=== PATIENT | male | born 1985 | race American Indian/Alaskan Native ===

== ENCOUNTER 2017-05-15 13:18 | Emergency (ER) | payer BC, MEDICAID ==
[2017-05-15] MEDS ORDERED: Acetaminophen/HYDROcodone 325-5 MG Tab PO ONE (13:36)
[2017-05-15] MEDS ORDERED: Ibuprofen 600 MG Tab PO ONE (13:37)
--- NOTE | 2017-05-15 13:53 | EDM.PDOC ---
ED HPI GENERAL MEDICAL PROBLEM - General Chief Complaint: Upper Extremity Injury/Pain Stated Complaint: RIGHT SHOULDER PAIN Time Seen by Provider: 05/15/17 13:23 Source of Information: Reports: Patient, Family History Limitations: Reports: No Limitations - History of Present Illness INITIAL COMMENTS - FREE TEXT/NARRATIVE: 32 years old male came to the ed after he over extended his right shoulder after playing volley ball. The patient heard a "pop" and has pain at his r ant shoulder since, especially with movement. No direct trauma. No N/V/D or any other acute medical issues at this time. Onset: Today Onset Date: 05/15/17 Onset Time: 12:00 Duration: Hour(s):, Intermittent Location: Reports: Upper Extremity, Right (r ant shoulder) Quality: Reports: Ache, Burning, Dull Severity: Moderate Improves with: Reports: Cold Therapy, Immobilization, Medication Worsens with: Reports: Movement Context: Reports: Exercise Associated Symptoms: Reports: No Other Symptoms - Related Data Allergies Allergy/AdvReac Type Severity Reaction Status Date / Time No Known Allergies Allergy Verified 05/15/17 13:23 Home Meds: Home Meds Acetaminophen/HYDROcodone [[place]aco 325-5 MG] 1 tab PO Q4H PRN #6 tab 05/15/17 [Rx] Past Medical History - Past Health History Medical/Surgical History: Denies Medical/Surgical History Cardiovascular History: Reports: Hypertension Neurological History: Reports: Migraines Other Neuro History: After he was diagnosed with HTN and started on medication he was no longer having headaches - Past Surgical History Cardiovascular Surgical History: Reports: None Social & Family History - Family History Family Medical History: Noncontributory - Tobacco Use Smoking Status *Q: Current Every Day Smoker Years of Tobacco use: 24 Packs/Tins Daily: 1 Used Tobacco, but Quit: No Second Hand Smoke Exposure: Yes - Caffeine Use Caffeine Use: Reports: None - Recreational Drug Use Recreational Drug Use: No Drug Use in Last 12 Months: No Review of Systems - Review of Systems Review Of Systems: See Below Constitutional: Reports: No Symptoms Eyes: Reports: No Symptoms Ears: Reports: No Symptoms Nose: Reports: No Symptoms Mouth/Throat: Reports: No Symptoms Respiratory: Reports: No Symptoms Cardiovascular: Reports: No Symptoms GI/Abdominal: Reports: No Symptoms Genitourinary: Reports: No Symptoms Musculoskeletal: Reports: Shoulder Pain Skin: Reports: No Symptoms Neurological: Reports: Other (tingling r fingers off/on) Psychiatric: Reports: No Symptoms ED EXAM, GENERAL - Physical Exam Exam: See Below Exam Limited By: No Limitations General Appearance: Alert, WD/WN, Mild Distress, Obese Eye Exam: Bilateral Eye: Normal Inspection Ears: Normal External Exam Ear Exam: Bilateral Ear: Auricle Normal Nose: Normal Inspection Throat/Mouth: Normal Inspection, Normal Lips Head: Atraumatic, Normocephalic Neck: Normal Inspection, Supple, Non-Tender, Full Range of Motion Respiratory/Chest: No Respiratory Distress, Lungs Clear, Normal Breath Sounds Cardiovascular: Normal Peripheral Pulses, Regular Rate, Rhythm, No Edema Peripheral Pulses: 1+: Femoral (L), Femoral (R) GI/Abdominal: Normal Bowel Sounds, Soft, Non-Tender (Male) Exam: Deferred Rectal (Males) Exam: Deferred Back Exam: Normal Inspection, Full Range of Motion Extremities: Limited Range of Motion (r shoulder due to pain) Neurological: Alert, Oriented, CN II-XII Intact, Normal Cognition, Normal Reflexes Psychiatric: Normal Affect, Normal Mood Skin Exam: Warm, Dry, Intact, Normal Color, No Rash Lymphatic: No Adenopathy Course - Vital Signs Text/Narrative:: 32 years old male came to the ed after he over extended his right shoulder after playing volley ball. The patient heard a "pop" and has pain at his r ant shoulder since, especially with movement. No direct trauma. No N/V/D or any other acute medical issues at this time. PE: pain r ant shoulder to palpation. Imaging: r shoulder neg Impression: R shoulder sprain. Tx: Ice, Motrin, Vicodin. Reexam: Improved Plan: D/C with instructions. Last Recorded V/S: Last Vital Signs Temp 36.8 C 05/15/17 14:30 Pulse 81 05/15/17 14:30 Resp 18 05/15/17 14:30 BP 135/78 05/15/17 14:30 Pulse Ox 100 05/15/17 14:30 - Orders/Labs/Meds Orders: Active Orders 24 hr Category Date Time Status Cooling Warming Measures [RC] ASDIRECTED Care 05/15/17 13:38 Active Ice Bag [Ice Therapy] [OM.PC] Routine Oth 05/15/17 13:38 Ordered Meds: Medications Discontinued Medications Generic Name Dose Route Start Last Admin Trade Name Freq PRN Reason Stop Dose Admin Hydrocodone Bitart/Acetaminophen 1 tab 05/15/17 13:36 05/15/17 14:07 [place] 325-5 Mg PO 05/15/17 13:37 1 tab ONETIME ONE Administration Ibuprofen 600 mg 05/15/17 13:37 05/15/17 14:06 Motrin PO 05/15/17 13:38 600 mg ONETIME ONE Administration Departure - Departure Time of Disposition: 14:19 Disposition: Home, Self-Care 01 Condition: Good Clinical Impression: Shoulder sprain Qualifiers: Encounter type: initial encounter Shoulder sprain type: coracohumeral ligament Laterality: right Qualified Code(s): S43.411A - Sprain of right coracohumeral ( ligament), initial encounter - Discharge Information Prescriptions: Acetaminophen/HYDROcodone [[place]aco 325-5 MG] 1 tab PO Q4H PRN #6 tab PRN Reason: severe pain only Instructions: Shoulder Sprain Referrals: PCP,None [Primary Care Provider] - Forms: ED Department Discharge Additional Instructions: Ice, rest and elevation, motrin for moderate pain, Waco for severe pain. Please wear armsling. Please follow up, please come back to the ed if your symptoms get worse acutely. - My Orders Last 24 Hours: My Active Orders 05/15/17 13:38 Cooling Warming Measures [RC] ASDIRECTED Ice Bag [Ice Therapy] [OM.PC] Routine - Assessment/Plan Last 24 Hours: My Active Orders 05/15/17 13:38 Cooling Warming Measures [RC] ASDIRECTED Ice Bag [Ice Therapy] [OM.PC] Routine
[2017-05-15 14:30] VITALS: BP 135/78
--- NOTE | 2017-05-15 16:25 | CR ---
INDICATION: Right shoulder pain after catching a ball - playing basketball and heard a "pop" as he shot the ball 2 days ago. RIGHT SHOULDER: Three views of the right shoulder were obtained. The axillary view was not obtained due to discomfort of the patient. A fracture, dislocation , or other significant bone or joint abnormality was not identified. SARAY
== END 2017-05-15 14:30 | disposition home or self-care (01) ==
LOC: FB.ED 13:18
DX: S43.411A Sprain of right coracohumeral (ligament), initial encounter (principal); I10 Essential (primary) hypertension; G43.909 Migraine, unspecified, not intractable, without status migrainosus; F17.210 Nicotine dependence, cigarettes, uncomplicated; X50.1XXA Overexertion from prolonged static or awkward postures, initial encounter; Y93.68 Activity, volleyball (beach) (court)
CPT/HCPCS: 73030; 99284; A9270; 99283

== ENCOUNTER 2017-07-28 20:44 | Emergency (ER) | payer MEDICAID ==
[2017-07-28] MEDS ORDERED: hydrOXYzine HCl 50 MG/ML SDV IM ONE (21:09)
[2017-07-28] MEDS ORDERED: Morphine 10 MG/ML Syringe IM ONE (21:09)
[2017-07-28] MEDS ORDERED: Ibuprofen 800 MG Tab PO ONE (21:42)
[2017-07-28] MEDS ORDERED: Ibuprofen 800 MG Tab ONE (21:46)
[2017-07-29 01:19] VITALS: BP 112/66
--- NOTE | 2017-07-29 02:07 | ER ---
DATE SEEN: 07/28/2017 REASON FOR VISIT: Migraine headache. HISTORY OF PRESENT ILLNESS: This is a 32-year-old with headache that started this morning insidiously, getting worse progressively consistent and characteristic of his usual headaches associated with nausea and photosensitivity. It is frontal and bitemporal. REVIEW OF SYSTEMS: Negative for any fever, chills, cough or cold symptoms. ALLERGIES: No known allergies. PHYSICAL EXAMINATION: GENERAL: He is in a darkened room. VITAL SIGNS: He has normal vital signs. HEENT: Head is normal size. Scalp, no signs of trauma. Pupils are equal react to light. NECK: Supple. NEUROLOGICAL: Mental status alert. IMPRESSION: Migraine headache exacerbation. PLAN: Morphine and Vistaril IM. Recommend follow up in the office tomorrow or return with any worsening symptoms. TIME SEEN: 2100 hours. /[id number] KENY/KEVYN
== END 2017-07-28 21:45 | disposition home or self-care (01) ==
LOC: FB.ED 20:44
DX: G43.909 Migraine, unspecified, not intractable, without status migrainosus (principal)
CPT/HCPCS: 82962; 96372; 99283; A9270; J2270; J3410

== ENCOUNTER 2018-05-17 12:38 | Emergency (ER) | payer MEDICAID ==
--- NOTE | 2018-05-17 13:49 | EDM.PDOC ---
ED HPI GENERAL MEDICAL PROBLEM - General Chief Complaint: Lower Extremity Injury/Pain Stated Complaint: RIGHT HIP PAIN Time Seen by Provider: 05/17/18 12:38 Source of Information: Reports: Patient, Family History Limitations: Reports: No Limitations - History of Present Illness INITIAL COMMENTS - FREE TEXT/NARRATIVE: 33 y.o.w.m came to the ed after he hit his right lat hip while getting off a truck. Pt has pain at his lat aspect of his right hip with movement. No other acute medical issues. BP 134/90 RR 18 Pulse ox 100% on RA pulse 94 Temp 98 Onset Date: 05/16/18 Onset Time: 20:00 Duration: Day(s):, Intermittent Location: Reports: Lower Extremity, Right Quality: Reports: Ache, Dull, Pressure Severity: Moderate Improves with: Reports: Rest Worsens with: Reports: Movement Context: Reports: Trauma Associated Symptoms: Reports: No Other Symptoms - Related Data Allergies Allergy/AdvReac Type Severity Reaction Status Date / Time No Known Allergies Allergy Verified 05/17/18 12:50 Home Meds: Home Meds Acetaminophen/oxyCODONE [Percocet 325-5 MG] 1 each PO Q6HR PRN #6 tab 05/17/18 [ Rx] Past Medical History - Past Health History Medical/Surgical History: Denies Medical/Surgical History Cardiovascular History: Reports: Hypertension Neurological History: Reports: Migraines Other Neuro History: After he was diagnosed with HTN and started on medication he was no longer having headaches Endocrine/Metabolic History: Reports: Diabetes, Type II - Past Surgical History Cardiovascular Surgical History: Reports: None Social & Family History - Family History Family Medical History: Noncontributory - Caffeine Use Caffeine Use: Reports: None Review of Systems - Review of Systems Review Of Systems: See Below Constitutional: Reports: No Symptoms Eyes: Reports: No Symptoms Ears: Reports: No Symptoms Nose: Reports: No Symptoms Mouth/Throat: Reports: No Symptoms Respiratory: Reports: No Symptoms Cardiovascular: Reports: No Symptoms GI/Abdominal: Reports: No Symptoms Genitourinary: Reports: No Symptoms Musculoskeletal: Reports: No Symptoms Skin: Reports: No Symptoms Neurological: Reports: No Symptoms Psychiatric: Reports: No Symptoms ED EXAM, GENERAL - Physical Exam Exam: See Below Exam Limited By: No Limitations General Appearance: Alert, WD/WN, Mild Distress Eye Exam: Bilateral Eye: Normal Inspection Ears: Normal External Exam Ear Exam: Bilateral Ear: Auricle Normal Nose: Normal Inspection, Normal Mucosa Throat/Mouth: Normal Inspection Head: Atraumatic, Normocephalic Neck: Normal Inspection, Supple, Non-Tender Respiratory/Chest: No Respiratory Distress, Lungs Clear, Normal Breath Sounds, Chest Non-Tender Cardiovascular: Normal Peripheral Pulses, Regular Rate, Rhythm, No Edema, No Gallop Peripheral Pulses: 1+: Brachial (L) GI/Abdominal: Normal Bowel Sounds, Soft, Non-Tender, No Organomegaly, No Abnormal Bruit (Male) Exam: Deferred Rectal (Males) Exam: Deferred Back Exam: Normal Inspection, Full Range of Motion Extremities: Normal Inspection, Limited Range of Motion, Other (tender right trochanter Major) Neurological: Alert, Oriented, CN II-XII Intact, Normal Cognition Psychiatric: Normal Affect, Normal Mood Skin Exam: Warm, Dry, Intact, Normal Color, No Rash Lymphatic: No Adenopathy Course - Vital Signs Text/Narrative:: 33 y.o.w.m came to the ed after he hit his right lat hip while getting off a truck. Pt has pain at his lat aspect of his right hip with movement. No other acute medical issues. BP 134/90 RR 18 Pulse ox 100% on RA pulse 94 Temp 98 PE: WNWD W M with right hip pain Imaging: R hip neg Impression: Trochanter bursitis [place]: Ice, Motrin, Percocet Reexam: Improved Plan: D/C with instructions - Orders/Labs/Meds Orders: Active Orders 24 hr Category Date Time Status Cooling Warming Measures [RC] ASDIRECTED Care 05/17/18 13:11 Active Hip Min 2V or 3V w Pelvis Rt [CR] Stat Exams 05/17/18 13:10 Taken Ice Bag [Ice Therapy] [OM.PC] Routine Oth 05/17/18 13:11 Ordered Departure - Departure Time of Disposition: 13:49 Disposition: Home, Self-Care 01 Condition: Good Clinical Impression: Trochanteric bursitis of right hip - Discharge Information Prescriptions: Acetaminophen/oxyCODONE [Percocet 325-5 MG] 1 each PO Q6HR PRN #6 tab PRN Reason: for severe pain only Instructions: Bursitis, [id number] Referrals: Edward Abdullahi MD [Primary Care Provider] - Forms: ED Department Discharge Additional Instructions: Please apply Ice to the affected area, please take motrin for "healing" and percocet for severe pain only. Please f/u with your PMD. Please come back to the ED if your symptoms get worse acutely - My Orders Last 24 Hours: My Active Orders 05/17/18 13:10 Hip Min 2V or 3V w Pelvis Rt [CR] Stat 05/17/18 13:11 Cooling Warming Measures [RC] ASDIRECTED Ice Bag [Ice Therapy] [OM.PC] Routine - Assessment/Plan Last 24 Hours: My Active Orders 05/17/18 13:10 Hip Min 2V or 3V w Pelvis Rt [CR] Stat 05/17/18 13:11 Cooling Warming Measures [RC] ASDIRECTED Ice Bag [Ice Therapy] [OM.PC] Routine
[2018-05-17 15:43] VITALS: BP 132/85
--- NOTE | 2018-05-20 14:51 | CR ---
INDICATION: Right hip pain. RIGHT HIP: COMPARISON: None. FINDINGS: Right hip joint spacing maintained. No findings of fracture. No avascular necrosis. IMPRESSION: 1. No fracture. MTDD
== END 2018-05-17 14:05 | disposition home or self-care (01) ==
LOC: FB.ED 12:38
DX: M70.61 Trochanteric bursitis, right hip (principal); I10 Essential (primary) hypertension; E11.9 Type 2 diabetes mellitus without complications
CPT/HCPCS: 73502-RT; 99283

== ENCOUNTER 2019-04-25 18:51 | Emergency (ER) | payer MEDICAID ==
[2019-04-25 19:12] VITALS: BP 127/98
--- NOTE | 2019-04-25 19:17 | EDM.PDOC ---
ED HPI GENERAL MEDICAL PROBLEM - General Chief Complaint: Lower Extremity Injury/Pain Stated Complaint: R LEG PAIN Time Seen by Provider: 04/25/19 19:17 Source of Information: Reports: Patient, Old Records History Limitations: Reports: No Limitations - History of Present Illness INITIAL COMMENTS - FREE TEXT/NARRATIVE: Very pleasant 34-year-old male who presents today with concern for right calf pain, sudden onset 2 days ago when he was riding his bike. He states he felt like a sudden crampy pain, got off of his bike and was able to hobble the rest of the way to the pop machine. After getting his pop, he felt a little better after having walked it out so he got back on his bike, then felt a pop in his calf and had sudden severe pain. He has tried icing and getting in the cold-like , which did not feel good at all. He has also tried icy hot which didn't help anything, and took 4 tablets of Aleve today but that didn't seem to change his pain either. Feels much worse if he tries to bear any weight on it. No history of DVT, no recent prolonged immobilization, no recent long car trips or airplane rides. He denies cough, shortness of breath, pleuritic chest pain, feeling lightheaded or dizzy. Smoker, history of diabetes. No other drug use and only very rare social alcohol. No history of previous injury to his calf or ankle R calf Pain Score (Numeric/FACES): 8 - Related Data Allergies Allergy/AdvReac Type Severity Reaction Status Date / Time No Known Allergies Allergy Verified 04/25/19 19:05 Home Meds: Home Meds NK [No Known Home Meds] 04/25/19 [History] Past Medical History Cardiovascular History: Reports: Hypertension Neurological History: Reports: Migraines Other Neuro History: After he was diagnosed with HTN and started on medication he was no longer having headaches Endocrine/Metabolic History: Reports: Diabetes, Type II - Past Surgical History Cardiovascular Surgical History: Reports: None Social & Family History - Family History Family Medical History: Noncontributory - Tobacco Use Smoking Status *Q: Current Every Day Smoker - Caffeine Use Caffeine Use: Reports: None - Alcohol Use Alcohol Use History: Yes Alcohol Use Comment: rare social drink - Recreational Drug Use Recreational Drug Use: No - Living Situation & Occupation Living situation: Reports: Occupation: Unemployed Social History Comment: 3 kids at home. No car at the moment ED ROS GENERAL - Review of Systems Review Of Systems: ROS reveals no pertinent complaints other than HPI. ED EXAM, GENERAL - Physical Exam Exam: See Below Free Text/Narrative:: Gen.: Alert, very pleasant distress. Heart is regular rate and rhythm, lungs clear throughout with no wheezes or crackles. Left and right calf appear equal size and there is no erythema present. There is no swelling of the ankle or foot on either side. Right calf is tender on the lateral side and he has pain with any plantar flexion. Joseph test is painful but does give small amount of plantar flexion. He does not have pain with knee extension, but notes a little pain with resisted knee flexion. Significant pain with any attempt at plantar flexion Ankle exam shows no tenderness over the medial or lateral malleolus, none over the fifth metatarsal or anywhere else in the foot. Anterior and posterior drawer testing of the ankle do not demonstrate any ligamentous laxity. He has a +2 dorsalis pedis pulse on both sides and sensation to light touch seems to be intact across the foot. Course - Vital Signs Text/Narrative:: Not really any risk factors for DVT. We discussed checking labs but he really has no other systemic symptoms. The calf size does not appear to be markedly different one side to another. Given mechanism, most likely a partial calf tear. Unfortunately I do not have ultrasound available tonight. Recommended follow up with PCP tomorrow or the next day and can get imaging evaluation at that time. Offer shot of Toradol for tonight, he declined and said he would stick with the Aleve at home. May benefit from slight amount of warm over the calf to help alleviate the pain. Walking boot given for him to use which should keep the foot in the correct position for healing. Discussed signs or symptoms which would prompt return to the emergency room, and all questions answered. He is in agreement with this plan Last Recorded V/S: Last Vital Signs Temp 36.3 C 04/25/19 18:58 Pulse 85 04/25/19 18:58 Resp 18 04/25/19 18:58 BP 127/98 H 04/25/19 18:58 Pulse Ox 99 04/25/19 18:58 Departure - Departure Time of Disposition: 19:46 Disposition: Home, Self-Care 01 Condition: Good Clinical Impression: Strain of calf muscle Qualifiers: Encounter type: initial encounter Laterality: right Qualified Code(s): S86.811A - Strain of other muscle(s) and tendon(s) at lower leg level, right leg , initial encounter - Discharge Information *PRESCRIPTION DRUG MONITORING PROGRAM REVIEWED*: Yes *COPY OF PRESCRIPTION DRUG MONITORING REPORT IN PATIENT JOSE ARMANDO: No Instructions: Muscle Strain Referrals: Edward Abdullahi MD [Primary Care Provider] - Forms: ED Department Discharge Additional Instructions: call PCP in office in AM for appointment. They should be able to get you set up for appointment and can decide on imaging. If calf size increases remarkably - gets red, swelling in foot, or more painful , or you have a change in pain, numbness or tingling below injury, recommend recheck. If have above symptoms and develop cough, shortness of breath, or feeling like you might pass out return to ER immediately.
== END 2019-04-25 20:00 | disposition home or self-care (01) ==
LOC: FB.ED 18:51
DX: S86.811A Strain of other muscle(s) and tendon(s) at lower leg level, right leg, initial encounter (principal); I10 Essential (primary) hypertension; E11.9 Type 2 diabetes mellitus without complications; F17.200 Nicotine dependence, unspecified, uncomplicated; V29.9XXA Motorcycle rider (driver) (passenger) injured in unspecified traffic accident, initial encounter
CPT/HCPCS: 99282

== ENCOUNTER 2020-10-07 19:16 | Emergency (ER) | payer MEDICAID ==
--- NOTE | 2020-10-07 19:28 | EDM.PDOC ---
ED HPI GENERAL MEDICAL PROBLEM - General Chief Complaint: General Stated Complaint: COVID RELATED Time Seen by Provider: 10/07/20 19:25 Source of Information: Reports: Patient History Limitations: Reports: No Limitations - History of Present Illness INITIAL COMMENTS - FREE TEXT/NARRATIVE: Patient presented to the ED because of nausea but no vomiting, cough,sore throat. He also c/o chills but no fever. - Related Data Allergies Allergy/AdvReac Type Severity Reaction Status Date / Time No Known Allergies Allergy Verified 10/07/20 19:20 Home Meds: Home Meds NK [No Known Home Meds] 04/25/19 [History] Past Medical History - Past Health History Medical/Surgical History: Denies Medical/Surgical History Cardiovascular History: Reports: Hypertension Musculoskeletal History: Reports: Fracture Other Musculoskeletal History: hx fx bilat hands & L arm Neurological History: Reports: Migraines Other Neuro History: After he was diagnosed with HTN and started on medication he was no longer having headaches Endocrine/Metabolic History: Reports: Diabetes, Type II Dermatologic History: Reports: Eczema - Past Surgical History Cardiovascular Surgical History: Reports: None Social & Family History - Family History Family Medical History: No Pertinent Family History - Caffeine Use Caffeine Use: Reports: None - Living Situation & Occupation Living situation: Reports: Occupation: Unemployed ED ROS GENERAL - Review of Systems Review Of Systems: See Below Constitutional: Reports: No Symptoms HEENT: Reports: Throat Pain Respiratory: Reports: Cough Cardiovascular: Reports: No Symptoms Endocrine: Reports: No Symptoms GI/Abdominal: Reports: Nausea Musculoskeletal: Reports: No Symptoms Skin: Reports: No Symptoms Neurological: Reports: No Symptoms Psychiatric: Reports: No Symptoms Hematologic/Lymphatic: Reports: No Symptoms Immunologic: Reports: No Symptoms ED EXAM, GENERAL - Physical Exam Exam: See Below Exam Limited By: No Limitations General Appearance: Alert, No Apparent Distress Eye Exam: Bilateral Eye: PERRL Ears: Normal External Exam, Normal Canal Nose: Normal Inspection, Normal Mucosa, No Blood Throat/Mouth: Normal Inspection, Normal Lips, Normal Teeth, Normal Gums Head: Atraumatic, Normocephalic Neck: Normal Inspection, Supple, Non-Tender, Full Range of Motion Respiratory/Chest: No Respiratory Distress, Lungs Clear, Normal Breath Sounds Cardiovascular: Normal Peripheral Pulses, Regular Rate, Rhythm, No Edema, No Gallop GI/Abdominal: Normal Bowel Sounds, Soft, Non-Tender, No Organomegaly Back Exam: Normal Inspection, Full Range of Motion Extremities: Normal Inspection, Normal Range of Motion, Non-Tender Course - Vital Signs Last Recorded V/S: Last Vital Signs Temp 36.9 C 10/07/20 19:21 Pulse 101 H 10/07/20 19:21 Resp 20 10/07/20 19:21 BP 142/87 H 10/07/20 19:21 Pulse Ox 97 10/07/20 19:21 Departure - Departure Time of Disposition: 19:55 Disposition: Home, Self-Care 01 Condition: Good Clinical Impression: Viral respiratory illness - Discharge Information Instructions: Viral Respiratory Infection, [id number] Referrals: Edward Abdullahi MD [Primary Care Provider] - Forms: ED Department Discharge Additional Instructions: Please read discharge instructions on viral respiratory infection Frequent hand washing Increase oral fluids Take ibuprofen 800 mg with tylenol 1000 mg every 8 hours as needed for pain Take i tablet each of Vit C, D, Zinc We will call you if you tested positive for Covid-19 Sepsis Event Note (ED) - Focused Exam Vital Signs: Vital Signs Temp Pulse Resp BP Pulse Ox 10/07/20 19:21 36.9 C 101 H 20 142/87 H 97
[2020-10-07 21:24] VITALS: BP 140/80; PULSE 98
[2020-10-09 18:50] LABS: CORNONAVIRUS (COVID19) CSH-NRL Positive (Negative)
== END 2020-10-07 20:22 | disposition home or self-care (01) ==
LOC: FB.ED 19:16
DX: U07.1 COVID-19 (principal); I10 Essential (primary) hypertension; E11.9 Type 2 diabetes mellitus without complications
CPT/HCPCS: 99283; U0003

== ENCOUNTER 2021-04-30 19:34 | Emergency (ER) | payer MEDICAID ==
[2021-04-30 19:51] VITALS: BP 119/95; PULSE 90
--- NOTE | 2021-04-30 20:02 | EDM.PDOC ---
ED HPI GENERAL MEDICAL PROBLEM - General Chief Complaint: General Stated Complaint: GROIN PAIN Time Seen by Provider: 04/30/21 19:50 Source of Information: Reports: Patient History Limitations: Reports: No Limitations - History of Present Illness INITIAL COMMENTS - FREE TEXT/NARRATIVE: Patient presented to the ED because of pain on his rt groin which started today. There is no abdominal pain,nausea or vomiting. No urinary symptoms or changes in bowel movements. Right Upper Groin Pain Score (Numeric/FACES): 8 - Related Data Allergies Allergy/AdvReac Type Severity Reaction Status Date / Time No Known Allergies Allergy Verified 10/07/20 19:20 Home Meds: Home Meds Ciprofloxacin HCl [Cipro] 500 mg PO BID #20 tablet 04/30/21 [Rx] Naproxen 500 mg PO BID #20 tablet 04/30/21 [Rx] Past Medical History - Past Health History Medical/Surgical History: Denies Medical/Surgical History HEENT History: Reports: Impaired Vision Other HEENT History: glasses Cardiovascular History: Reports: Hypertension Other Cardiovascular History: doesn't take meds, doesn't remember med name Respiratory History: Reports: SOB, Other (See Below) Other Respiratory History: cough dry hack, sob X4 days. Musculoskeletal History: Reports: Fracture Other Musculoskeletal History: hx fx bilat hands & L arm, joint pain Neurological History: Reports: Migraines Other Neuro History: After he was diagnosed with HTN and started on medication he was no longer having headaches Endocrine/Metabolic History: Reports: Diabetes, Type II Other Endocrine/Metabolic History: managed by diet. Dermatologic History: Reports: Eczema Other Dermatologic History: stomach - Infectious Disease History Infectious Disease History: Reports: Influenza - Past Surgical History HEENT Surgical History: Reports: None Cardiovascular Surgical History: Reports: None Respiratory Surgical History: Reports: None Endocrine Surgical History: Reports: None Neurological Surgical History: Reports: None Musculoskeletal Surgical History: Reports: None Social & Family History - Family History Family Medical History: No Pertinent Family History - Tobacco Use Tobacco Use Status *Q: Former Tobacco User Used Tobacco, but Quit: Yes Month/Year Tobacco Last Used: 03/2018 - Caffeine Use Caffeine Use: Reports: Soda Caffeine Use Comment: 1-2/day - Recreational Drug Use Recreational Drug Use: No - Living Situation & Occupation Living situation: Reports: Occupation: Unemployed ED ROS GENERAL - Review of Systems Review Of Systems: See Below Constitutional: Reports: No Symptoms HEENT: Reports: No Symptoms Respiratory: Reports: No Symptoms Cardiovascular: Reports: No Symptoms Endocrine: Reports: No Symptoms GI/Abdominal: Reports: No Symptoms : Reports: No Symptoms Musculoskeletal: Reports: No Symptoms Skin: Reports: No Symptoms Neurological: Reports: No Symptoms ED EXAM, GENERAL - Physical Exam Exam: See Below Exam Limited By: No Limitations General Appearance: Alert, No Apparent Distress Ears: Normal External Exam, Normal Canal Nose: Normal Inspection, Normal Mucosa, No Blood Throat/Mouth: Normal Inspection Head: Atraumatic, Normocephalic Neck: Normal Inspection, Supple, Non-Tender Respiratory/Chest: No Respiratory Distress, Lungs Clear, Normal Breath Sounds Cardiovascular: Normal Peripheral Pulses, Regular Rate, Rhythm, No Edema, No Gallop, No JVD, No Murmur, No Rub GI/Abdominal: Normal Bowel Sounds, Soft, Non-Tender, No Organomegaly (Male) Exam: Other (tenderness rt groin area,no mass) Back Exam: Normal Inspection, Full Range of Motion Extremities: Normal Inspection, Normal Range of Motion Course - Vital Signs Text/Narrative:: Ibuprofen 900 mg PO x1 Cipro 500 mg PO x1 Tramadol 100 mg PO x1 Last Recorded V/S: Last Vital Signs Temp 36.7 C 04/30/21 19:48 Pulse 90 04/30/21 19:48 Resp 18 04/30/21 19:48 BP 119/95 H 04/30/21 19:48 Pulse Ox 99 04/30/21 19:48 - Orders/Labs/Meds Meds: Medications Discontinued Medications Generic Name Dose Route Start Last Admin Trade Name Melissa PRN Reason Stop Dose Admin Ciprofloxacin 500 mg 04/30/21 19:53 04/30/21 20:03 Ciprofloxacin 500 Mg Tab PO 04/30/21 19:54 500 mg NOW STA Administration Ibuprofen 800 mg 04/30/21 19:53 04/30/21 20:04 Ibuprofen 800 Mg Tab PO 04/30/21 19:54 800 mg NOW STA Administration Tramadol HCl 100 mg 04/30/21 19:53 04/30/21 20:03 Tramadol 50 Mg Tab PO 04/30/21 19:54 100 mg NOW STA Administration Departure - Departure Time of Disposition: 20:00 Disposition: Home, Self-Care 01 Condition: Good Clinical Impression: Epididymitis - Discharge Information Prescriptions: Ciprofloxacin HCl [Cipro] 500 mg PO BID #20 tablet Naproxen 500 mg PO BID #20 tablet Instructions: Epididymitis Referrals: Edward Abdullahi MD [Primary Care Provider] - Forms: ED Department Discharge Additional Instructions: Please read discharge instructions on epididymitis Appli ice pack Naproxen 500 mg Twice daily for 10 days Cipro 500 mg twice daily for 10 days Follow up if symptoms persist or if it get worse Sepsis Event Note (ED) - Evaluation Sepsis Screening Result: No Definite Risk
[2021-04-30] MEDS: Ciprofloxacin 500 MG Tab PO STA (20:03)
[2021-04-30] MEDS: traMADol 50 MG Tab PO STA (20:03)
[2021-04-30] MEDS: Ibuprofen 800 MG Tab PO STA (20:04)
== END 2021-04-30 20:16 | disposition home or self-care (01) ==
LOC: FB.ED 19:34
DX: N45.1 Epididymitis (principal); I10 Essential (primary) hypertension; E11.9 Type 2 diabetes mellitus without complications; Z87.891 Personal history of nicotine dependence
CPT/HCPCS: 99283; A9270

== ENCOUNTER 2021-05-11 21:30 | Emergency (ER) | payer MEDICAID ==
[2021-05-11] MEDS ORDERED: Sodium Chloride 0.9% 10 ML Syringe FLUSH PRN (21:48)
--- NOTE | 2021-05-11 22:11 | EDM.PDOC ---
ED HPI GENERAL MEDICAL PROBLEM - General Chief Complaint: General Stated Complaint: GROIN Time Seen by Provider: 05/11/21 22:30 Source of Information: Reports: Patient History Limitations: Reports: No Limitations - History of Present Illness INITIAL COMMENTS - FREE TEXT/NARRATIVE: Presents with intermittent right groin pain and swelling since 04/30/21. He was diagnosed with Epididymitis and prescribed Cipro. The pain worsened today. Denies N/V. Patient has a prior diagnosis of T2DM and was on Metformin, but stopped it @2 years ago due to abnormal liver enzymes. He denies penile discharge and has not been sexually active x 1 year. Duration: Day(s): (11) Right Groin Pain Score (Numeric/FACES): 10 - Related Data Allergies Allergy/AdvReac Type Severity Reaction Status Date / Time No Known Allergies Allergy Verified 05/11/21 21:48 Home Meds: Home Meds Naproxen 500 mg PO BID #20 tablet 04/30/21 [Rx] Acetaminophen/HYDROcodone [[place] 325-5 MG] 1 - 2 tab PO Q6H PRN #12 tab 05/11/21 [Rx] Amoxicillin/Clavulanate K [Augmentin 875-125 MG] 1 tab PO BID #20 tablet 05/11/21 [Rx] glyBURIDE [Glyburide] 5 mg PO DAILY #30 tablet 05/11/21 [Rx] Past Medical History HEENT History: Reports: Impaired Vision Other HEENT History: glasses Cardiovascular History: Reports: Hypertension Other Cardiovascular History: doesn't take meds, doesn't remember med name Respiratory History: Reports: SOB, Other (See Below) Other Respiratory History: cough dry hack, sob X4 days. Musculoskeletal History: Reports: Fracture Other Musculoskeletal History: hx fx bilat hands & L arm, joint pain Neurological History: Reports: Migraines Other Neuro History: After he was diagnosed with HTN and started on medication he was no longer having headaches Endocrine/Metabolic History: Reports: Diabetes, Type II Other Endocrine/Metabolic History: managed by diet. Dermatologic History: Reports: Eczema Other Dermatologic History: stomach - Infectious Disease History Infectious Disease History: Reports: Influenza - Past Surgical History HEENT Surgical History: Reports: None Cardiovascular Surgical History: Reports: None Respiratory Surgical History: Reports: None Endocrine Surgical History: Reports: None Neurological Surgical History: Reports: None Musculoskeletal Surgical History: Reports: None Social & Family History - Family History Family Medical History: No Pertinent Family History - Caffeine Use Caffeine Use: Reports: Soda Caffeine Use Comment: 1-2/day - Living Situation & Occupation Living situation: Reports: Occupation: Unemployed ED ROS GENERAL - Review of Systems Review Of Systems: Comprehensive ROS is negative, except as noted in HPI. ED EXAM, GENERAL - Physical Exam Exam: See Below Exam Limited By: No Limitations General Appearance: Alert, WD/WN, No Apparent Distress Head: Atraumatic, Normocephalic Neck: Full Range of Motion Respiratory/Chest: No Respiratory Distress, Lungs Clear, Normal Breath Sounds Cardiovascular: Regular Rate, Rhythm, No Murmur GI/Abdominal: Normal Bowel Sounds, Soft, Non-Tender, No Distention (Male) Exam: Other (right inguinal mass, firm, tender, no fluctuance). No: Scrotum Tenderness (L), Scrotum Tenderness (R), Testicular Mass, Testicular Tenderness (L), Testicular Tenderness (R) Extremities: Normal Range of Motion Neurological: Alert, Normal Cognition Psychiatric: Normal Affect, Normal Mood Skin Exam: Warm, Dry, Intact, Normal Color, No Rash Course - Vital Signs Last Recorded V/S: Last Vital Signs Temp 35.6 C L 05/11/21 21:30 Pulse 97 05/11/21 21:30 Resp 18 05/11/21 21:30 BP 141/94 H 05/11/21 21:30 Pulse Ox 97 05/11/21 21:30 - Orders/Labs/Meds Orders: Active Orders 24 hr Category Date Time Status Accu Check [Blood Glucose Check, Bedside] [RC] ONETIME Care 05/11/21 23:30 Active Abdomen Pelvis w Cont [CT] Stat Exams 05/11/21 22:27 Taken CHLAMYDIA/GC AMPLIFICATION Stat Lab 05/11/21 21:50 Received Sodium Chloride 0.9% [Saline Flush] Med 05/11/21 21:48 Active 10 ml FLUSH ASDIRECTED PRN Saline Lock Insert [OM.PC] Routine Oth 05/11/21 21:48 Ordered Medication Orders Sodium Chloride (Sodium Chloride 0.9% 10 Ml Syringe) 10 ml FLUSH ASDIRECTED PRN PRN Reason: Keep Vein Open Labs: Laboratory Tests 05/11/21 05/11/21 05/11/21 Range/Units 21:50 21:54 21:54 WBC 11.8 H (3.2-10.1) x10-3/uL RBC 5.50 (3.90-5.90) x10(6)uL Hgb 15.9 (12.9-17.7) g/dL Hct 46.7 (38.3-50.1) % MCV 85.0 (80.8-98.7) fL MCH 28.8 (27.0-33.3) pg MCHC 34.0 (28.7-35.3) g/dL RDW 12.8 (12.4-15.0) % Plt Count 255 (117-477) x10(3)uL MPV 7.8 (6.7-11.0) fL Neut % (Auto) 68.3 (40.3-71.8) % Lymph % (Auto) 21.7 (15.8-45.3) % [place] % (Auto) 6.5 (5.5-15.2) % Eos % (Auto) 2.7 (0.1-6.8) % Baso % (Auto) 0.8 (0.3-3.8) % Neut # (Auto) 8.0 H (1.7-6.9) x10-3/uL Lymph # (Auto) 2.6 (0.5-4.5) x10-3/uL [place] # (Auto) 0.8 (0.0-1.2) x10-3/uL Eos # (Auto) 0.3 (0.0-0.6) x10-3/uL Baso # (Auto) 0.1 (0.0-0.3) x10-3/uL Sodium 135 (135-145) mmol/L Potassium 4.3 (3.5-5.3) mmol/L Chloride 95 L (100-110) mmol/L Carbon Dioxide 29 (21-32) mmol/L BUN 15 (7-18) mg/dL Creatinine 1.2 (0.70-1.30) mg/dL Est Cr Clr Drug Dosing 78.03 mL/min Estimated GFR (MDRD) > 60 (>60) BUN/Creatinine Ratio 12.5 (9-20) Glucose 473 H* (80-116) mg/dL POC Glucose (80-116) mg/dL Hemoglobin A1c (<5.7) % Calcium 9.3 (8.6-10.2) mg/dL Total Bilirubin 0.6 (0.1-1.3) mg/dL AST 9 (5-25) IU/L ALT 26 (12-36) U/L Alkaline Phosphatase 155 H (56-112) IU/L Total Protein 7.7 (6.0-8.0) g/dL Albumin 3.4 L (3.5-5.2) g/dL Globulin 4.3 g/dL Albumin/Globulin Ratio 0.8 Urine Color Yellow (YELLOW) Urine Appearance Clear (CLEAR) Urine pH 5.0 (5.0-6.5) Ur Specific [place] 1.010 (1.010-1.025) Urine Protein Negative (NEGATIVE) mg/dL Urine Glucose (UA) >1000 H (NORMAL) mg/dL Urine Ketones Negative (NEGATIVE) mg/dL Urine Occult Blood Negative (NEGATIVE) Urine Nitrite Negative (NEGATIVE) Urine Bilirubin Negative (NEGATIVE) Urine Urobilinogen Normal (NEGATIVE) mg/dL Ur Leukocyte Esterase Negative (NEGATIVE) Urine RBC Not seen (0-5) Urine WBC 0-5 (0-5) Ur Squamous Epith Cells Few H (NS,R,O) Urine Bacteria Rare H (NS) 05/11/21 05/11/21 Range/Units 21:54 23:40 WBC (3.2-10.1) x10-3/uL RBC (3.90-5.90) x10(6)uL Hgb (12.9-17.7) g/dL Hct (38.3-50.1) % MCV (80.8-98.7) fL MCH (27.0-33.3) pg MCHC (28.7-35.3) g/dL RDW (12.4-15.0) % Plt Count (117-477) x10(3)uL MPV (6.7-11.0) fL Neut % (Auto) (40.3-71.8) % Lymph % (Auto) (15.8-45.3) % [place] % (Auto) (5.5-15.2) % Eos % (Auto) (0.1-6.8) % Baso % (Auto) (0.3-3.8) % Neut # (Auto) (1.7-6.9) x10-3/uL Lymph # (Auto) (0.5-4.5) x10-3/uL [place] # (Auto) (0.0-1.2) x10-3/uL Eos # (Auto) (0.0-0.6) x10-3/uL Baso # (Auto) (0.0-0.3) x10-3/uL Sodium (135-145) mmol/L Potassium (3.5-5.3) mmol/L Chloride (100-110) mmol/L Carbon Dioxide (21-32) mmol/L BUN (7-18) mg/dL Creatinine (0.70-1.30) mg/dL Est Cr Clr Drug Dosing mL/min Estimated GFR (MDRD) (>60) BUN/Creatinine Ratio (9-20) Glucose (80-116) mg/dL POC Glucose 247 H (80-116) mg/dL Hemoglobin A1c 9.9 H (<5.7) % Calcium (8.6-10.2) mg/dL Total Bilirubin (0.1-1.3) mg/dL AST (5-25) IU/L ALT (12-36) U/L Alkaline Phosphatase (56-112) IU/L Total Protein (6.0-8.0) g/dL Albumin (3.5-5.2) g/dL Globulin g/dL Albumin/Globulin Ratio Urine Color (YELLOW) Urine Appearance (CLEAR) Urine pH (5.0-6.5) Ur Specific [place] (1.010-1.025) Urine Protein (NEGATIVE) mg/dL Urine Glucose (UA) (NORMAL) mg/dL Urine Ketones (NEGATIVE) mg/dL Urine Occult Blood (NEGATIVE) Urine Nitrite (NEGATIVE) Urine Bilirubin (NEGATIVE) Urine Urobilinogen (NEGATIVE) mg/dL Ur Leukocyte Esterase (NEGATIVE) Urine RBC (0-5) Urine WBC (0-5) Ur Squamous Epith Cells (NS,R,O) Urine Bacteria (NS) Meds: Medications Generic Name Dose Route Start Last Admin Trade Name Freq PRN Reason Stop Dose Admin Sodium Chloride 10 ml 05/11/21 21:48 Sodium Chloride 0.9% 10 Ml Syringe FLUSH ASDIRECTED PRN Keep Vein Open Discontinued Medications Generic Name Dose Route Start Last Admin Trade Name Freq PRN Reason Stop Dose Admin Amoxicillin/Clavulanate Potassium 1 tab 05/11/21 23:41 Amoxicillin/Clavulanate K 875-125 Mg Tab PO 05/11/21 23:42 ONETIME ONE Dextrose/Water 50 ml 05/11/21 22:21 50% Dextrose In Water 50 Ml Syringe IVPUSH ASDIRECTED PRN Hypoglycemia Glucagon 1 mg 05/11/21 22:21 Glucagon,Human Recombinant 1 Mg Vial IM ASDIRECTED PRN Hypoglycemia Hydromorphone HCl 1 mg 05/11/21 22:27 05/11/21 22:39 Hydromorphone 2 Mg/Ml Sdv IVPUSH 05/11/21 22:28 1 mg ONETIME ONE Administration Sodium Chloride 1,000 mls @ 999 mls/hr 05/11/21 22:21 05/11/21 22:20 Normal Saline IV 05/11/21 23:21 999 mls/hr .BOLUS ONE Administration Insulin Human Regular 5 unit 05/11/21 22:21 05/11/21 22:35 Insulin Regular, Human 100 Units/Ml 3 Ml Vial IV 05/11/21 22:22 5 unit ONETIME ONE Administration Insulin Human Regular 10 unit 05/11/21 22:22 05/11/21 22:37 Insulin Regular, Human 100 Units/Ml 3 Ml Vial SUBCUT 05/11/21 22:23 10 unit ONETIME ONE Administration Iopamidol 100 ml 05/11/21 22:49 05/11/21 22:57 Iopamidol 755 Mg/Ml 100 Ml Bottle IV 05/11/21 22:50 100 ml . DIRECTED ONE Administration - Radiology Interpretation Free Text/Narrative:: CT Abd/Pelvis w/ IV contrast: IMPRESSION: CT of the pelvis shows a new right inguinal abscess measuring 3.0 x 2.5 x 3.3 centimeters lateral to the otherwise normal-appearing right inguinal canal. There is mild adjacent reactive lymphadenopathy. There is no sign of any associated right inguinal hernia. There is a new small fat containing left inguinal hernia. CT of the abdomen shows no change in a tiny cyst in the interpolar right kidney of no clinical concern. Dictated by Dhiraj Orozco MD @ 05/11/2021 11:35:30 PM (Electronic Signature) - Re-Assessments/Exams Free Text/Narrative Re-Assessment/Exam: 05/11/21 23:36 Accucheck 247. Pain-free. 05/11/21 23:45 I&D and aspiration of right inguinal abscess offered, patient declined. Agrees to follow up with general surgery. Departure - Departure Time of Disposition: 23:46 Disposition: Home, Self-Care 01 Condition: Good Clinical Impression: Inguinal abscess Hyperglycemia due to type 2 diabetes mellitus Qualifiers: Diabetes mellitus nursing home insulin use: without lobsterman use Qualified Code(s): E11.65 - Type 2 diabetes mellitus with hyperglycemia - Discharge Information *PRESCRIPTION DRUG MONITORING PROGRAM REVIEWED*: Yes *COPY OF PRESCRIPTION DRUG MONITORING REPORT IN PATIENT JOSE ARMANDO: Not Applicable Prescriptions: Amoxicillin/Clavulanate K [Augmentin 875-125 MG] 1 tab PO BID #20 tablet glyBURIDE [Glyburide] 5 mg PO DAILY #30 tablet Acetaminophen/HYDROcodone [[place] 325-5 MG] 1 - 2 tab PO Q6H PRN #12 tab PRN Reason: Pain (Moderate 4-6) Instructions: Skin Abscess, Type 2 Diabetes Mellitus, Diagnosis, Adult Referrals: Edward Abdullahi MD [Primary Care Provider] - 3 Days Ruperto Price MD [Ordering Only Provider] - 2 Days Forms: ED Department Discharge Additional Instructions: Fill the prescriptions for Glyburide, Augmentin, and [place] and take as directed. Follow up with General Surgery and your Primary Physician in 2-3 days. You will need the abscess drained by a general surgeon. Follow up with Dr. Abdullahi regarding your diabetes. Return to the ER as needed. Sepsis Event Note (ED) - Evaluation Sepsis Screening Result: No Definite Risk - Focused Exam Vital Signs: Vital Signs Temp Pulse Resp BP Pulse Ox 05/11/21 21:30 35.6 C L 97 18 141/94 H 97 - My Orders Last 24 Hours: My Active Orders 05/11/21 21:48 Sodium Chloride 0.9% [Saline Flush] 10 ml FLUSH ASDIRECTED PRN Saline Lock Insert [OM.PC] Routine 05/11/21 21:50 CHLAMYDIA/GC AMPLIFICATION Stat 05/11/21 22:27 Abdomen Pelvis w Cont [CT] Stat 05/11/21 23:30 Accu Check [Blood Glucose Check, Bedside] [RC] ONETIME - Assessment/Plan Last 24 Hours: My Active Orders 06/26/21 21:48 Sodium Chloride 0.9% [Saline Flush] 10 ml FLUSH ASDIRECTED PRN Saline Lock Insert [OM.PC] Routine 05/11/21 21:50 CHLAMYDIA/GC AMPLIFICATION Stat 05/11/21 22:27 Abdomen Pelvis w Cont [CT] Stat 05/11/21 23:30 Accu Check [Blood Glucose Check, Bedside] [RC] ONETIME
[2021-05-11] MEDS ORDERED: Sodium Chloride 0.9% 1,000 ML IV ONE (22:21)
[2021-05-11] MEDS ORDERED: Glucagon,Human Recombinant 1 MG Vial IM PRN (22:21)
[2021-05-11] MEDS ORDERED: 50% Dextrose in Water 50 ML Syringe IVPUSH PRN (22:21)
[2021-05-11] MEDS ORDERED: Insulin Regular, Human 100 Units/ML 3 ML Vial IV ONE (22:21)
[2021-05-11] MEDS ORDERED: Insulin Regular, Human 100 Units/ML 3 ML Vial SUBCUT ONE (22:22)
[2021-05-11] MEDS ORDERED: HYDROmorphone 2 MG/ML SDV IVPUSH ONE (22:27)
[2021-05-11 22:37] LABS: HEMOGLOBIN A1C 9.9 % (<5.7)
[2021-05-11] MEDS ORDERED: Iopamidol 755 Mg/ML 100 ML Bottle IV ONE (22:49)
[2021-05-11] MEDS ORDERED: Amoxicillin/Clavulanate K 875-125 MG Tab PO ONE (23:41)
[2021-05-12 00:03] VITALS: BP 116/81; PULSE 105
[2021-05-15 11:14] LABS: CHLAMYDIA TRACHOMATIS, NAA Negative (Negative); NEISSERIA GONORRHOEAE, NAA Negative (Negative)
== END 2021-05-12 00:09 | disposition home or self-care (01) ==
LOC: FB.ED 21:30
DX: L02.214 Cutaneous abscess of groin (principal); E11.65 Type 2 diabetes mellitus with hyperglycemia; I10 Essential (primary) hypertension
CPT/HCPCS: 36415; 74177; 80053; 81001; 82947; 83036; 85025; 87491; 87591; 96374; 99283; 99284-25; J1170; J1815-GY; J7030; Q9967

== ENCOUNTER 2021-12-24 21:20 | Emergency (ER) | payer MEDICAID ==
[2021-12-24 22:14] VITALS: BP 153/102; PULSE 90
== END 2021-12-24 22:00 | disposition home or self-care (01) ==
LOC: FB.ED 21:20
DX: S61.211A Laceration without foreign body of left index finger without damage to nail, initial encounter (principal); E11.9 Type 2 diabetes mellitus without complications; I10 Essential (primary) hypertension; Z91.040 Latex allergy status; Z79.899 Other long term (current) drug therapy; W23.0XXA Caught, crushed, jammed, or pinched between moving objects, initial encounter
CPT/HCPCS: 73130-LT; 99283-25

== ENCOUNTER 2023-12-18 21:33 | Emergency (ER) | payer MEDICAID ==
[2023-12-18 21:50] VITALS: BP 180/126; PULSE 106
[2023-12-18] MEDS: Lidocaine 2% Viscous Solution 15 ML UD PO ONE (21:56)
== END 2023-12-18 23:22 | disposition home or self-care (01) ==
LOC: FB.ED 21:33
DX: K08.89 Other specified disorders of teeth and supporting structures (principal); I10 Essential (primary) hypertension; E11.9 Type 2 diabetes mellitus without complications; Z86.16 Personal history of COVID-19; Z79.84 Long term (current) use of oral hypoglycemic drugs; Z79.899 Other long term (current) drug therapy; Z91.040 Latex allergy status
CPT/HCPCS: 99282; 99283; A9270-GY

== ENCOUNTER 2024-09-11 23:17 | Emergency (ER) | payer MEDICAID ==
[2024-09-11] MEDS ORDERED: Sodium Chloride 0.9% 10 ML Syringe FLUSH PRN (23:42)
[2024-09-11 23:59] LABS: BASOPHILS ABSOLUTE AUTO 0.1 x10-3/uL (0.0-0.3); BASOPHILS PERCENT AUTO 0.9 % (0.3-3.8); EOSINOPHILS ABSOLUTE AUTO 0.1 x10-3/uL (0.0-0.6); EOSINOPHILS PERCENT AUTO 1.9 % (0.1-6.8); HEMATOCRIT 46.6 % (38.3-50.1); HEMOGLOBIN 16.2 g/dL (12.9-17.7); LYMPHOCYTES ABSOLUTE AUTO 2.7 x10-3/uL (0.5-4.5); LYMPHOCYTES PERCENT AUTO 35.4 % (15.8-45.3); MEAN CORPUSCULAR HEMOGLOBIN 29.1 pg (27.0-33.3); MEAN CORPUSCULAR HGB CONC 34.7 g/dL (28.7-35.3); MEAN CORPUSCULAR VOLUME 83.8 fL (80.8-98.7); MEAN PLATELET VOLUME 8.5 fL (6.7-11.0); MONOCYTES ABSOLUTE AUTO 0.5 x10-3/uL (0.0-1.2); MONOCYTES PERCENT AUTO 6.1 % (5.5-15.2); NEUTROPHILS ABSOLUTE AUTO 4.3 x10-3/uL (1.7-6.9); NEUTROPHILS PERCENT AUTO 55.7 % (40.3-71.8); PLATELET COUNT,PLT 174 x10(3)uL (117-477); RED BLOOD CELL COUNT 5.56 x10(6)uL (3.90-5.90); RED CELL DISTRIBUTION WIDTH 12.8 % (12.4-15.0); WHITE BLOOD CELL COUNT,WBC 7.7 x10-3/uL (3.2-10.1)
[2024-09-12 00:11] LABS: A/G RATIO 0.9; ALANINE AMINOTRANSFERASE,ALT 35 U/L (12-36); ALBUMIN 3.2 g/dL (3.5-5.2); ALKALINE PHOSPHATASE 148 IU/L (56-112); ASPARTATE AMNIOTRANSFERASE,AST 11 IU/L (5-25); BILIRUBIN TOTAL 0.4 mg/dL (0.1-1.3); BLOOD UREA NITROGEN,BUN 24 mg/dL (7-18); BUN/CREATININE RATIO 18.5 (9-20); CALCIUM 8.5 mg/dL (8.6-10.2); CARBON DIOXIDE,CO2 24 mmol/L (21-32); CHLORIDE,CL 98 mmol/L (100-110); CREATININE 1.3 mg/dL (0.70-1.30); EST CRCL DRUG DOSING (CG) 69.91 mL/min; ESTIMATED GFR 71 mL/min (>60); POTASSIUM,K 4.2 mmol/L (3.5-5.3); PROTEIN TOTAL,TP 6.8 g/dL (6.0-8.0); SODIUM,NA 134 mmol/L (135-145)
[2024-09-12 00:15] VITALS: BP 142/95; PULSE 95
[2024-09-12 00:18] LABS: GLUCOSE RANDOM 479 mg/dL (80-116); LACTIC ACID 1.8 mmol/L (0.4-2.0)
[2024-09-12 00:24] LABS: APPEARANCE,URINE CLEAR (CLEAR); BILIRUBIN,URINE NEGATIVE (NEGATIVE); COLOR,URINE YELLOW (YELLOW); GLUCOSE,URINE >1000 mg/dL (NORMAL); KETONES,URINE NEGATIVE (NEGATIVE); LEUKOCYTE ESTERASE,URINE NEGATIVE (NEGATIVE); NITRITE,URINE NEGATIVE (NEGATIVE); OCCULT BLOOD,URINE NEGATIVE (NEGATIVE); PROTEIN,URINE NEGATIVE (NEGATIVE); UROBILINOGEN,URINE NORMAL (NEGATIVE)
== END 2024-09-12 00:52 | disposition home or self-care (01) ==
LOC: FB.ED 23:17
DX: R10.31 Right lower quadrant pain (principal); E11.65 Type 2 diabetes mellitus with hyperglycemia; I10 Essential (primary) hypertension; Z86.16 Personal history of COVID-19; F17.210 Nicotine dependence, cigarettes, uncomplicated; Z79.899 Other long term (current) drug therapy; Z91.040 Latex allergy status
CPT/HCPCS: 36415; 74176; 80053; 81003; 83605; 83690; 85025; 99284